=== PATIENT | female | born 1930 | race Two or more races ===

== ENCOUNTER 2016-04-09 14:12 | Inpatient (IN) | payer MEDICAID ==
[2016-04-09] VITALS (23 sets, daily range): BP systolic 56–113; BP diastolic 40–64
[~2016-04-09] VITALS: Ht 160 cm; Wt 49.9 kg
[~2016-04-09 14:12] MED LIST: ALLOPURINOL100 M1 ORAL; AMIODARONE HCL400 M1 ORAL; ELIQUIS2.5 MG PO; FERROUS SULFAT325 MG ORAL; FUROSEMIDE40 MG ORAL; HYDROCODON-ACE1 EA16 ORAL; LABETALOL HCL100 MG ORAL; LEVOTHYROXINE100 MC1 IV; LEVOTHYROXINE25 MCG ORAL; MYLERAN2 MG PO; PANTOPRAZOLE SO40 MG ORAL; TRAMADOL HCL50 MG ORAL
--- NOTE | 2016-04-09 14:16 | Emergency Room Report ---
History of Present Illness General Source: EMS, PMD Present Illness HPI 86 YO F RANI from SNF after call for "SOB". Patient found to be hypoxic to 90 % improved to 100% with NRB. Also found to be hypotensive, improved with 150cc fluid bolus. Patient endorses chills, cough, SOB, chest pain however she states affirmative to every question on ROS so unsure how reliable HPI is at this time. Per PMD Dr Montelongo, family is oscillating between hospice care and full code at this time. Patient's family requesting tx of infection, hypotensive but doesnt want intubation or CPR. No other history from patient or EMS. Allergies: Coded Allergies: No Known Allergies (Unverified , 02/15/16) Patient History Past Medical History: HTN, CHF, AFib, other - metastatic adenocarcinoma Past Surgical History: unable to obtain Pertinent Family History: unable to obtain Social History: Denies: alcohol use, drug use, smoking Now: No Immunizations: UTD Reviewed Nursing Documentation: PMH: Agreed, PSxH: Agreed Nursing Documentation-PMH Hx Cardiac Problems: Yes - CHF afib pacemaker chronic kidney disease hypothyroidsim Hx Hypertension: Yes Hx Pacemaker: Yes - Left side Hx Asthma: No Hx Diabetes: No Hx Cancer: Yes - metastatic adenocarcinoma Hx Gastrointestinal Problems: Yes - GERD pancreatitis Hx Dialysis: No Hx Neurological Problems: Yes - chronic renal disease Hx Cerebrovascular Accident: No Hx Seizures: No Review of Systems All Other Systems: negative except mentioned in HPI Physical Exam Sp02 EP Interpretation: abnormal General Appearance: normal inspection, well appearing, no apparent distress, alert, GCS 15, non-toxic Head: normocephalic, atraumatic Eyes: bilateral eye EOMI, bilateral eye PERRL ENT: normal ENT inspection, hearing grossly normal, normal voice Neck: normal inspection, full range of motion, supple, no meningismus, no bony tend Respiratory: normal inspection, no respiratory distress, no retraction, no wheezing, accessory muscle use, rhonchi Cardiovascular #1: regular rate, rhythm, no edema Gastrointestinal: normal inspection, normal bowel sounds, non tender, soft, no guarding, no hernia Genitourinary: no CVA tenderness Musculoskeletal: normal inspection, back normal, normal range of motion, Terell' s Sign negative Neurologic: normal inspection, alert, oriented x3, responsive, organizational effectiveness consultant III-XII nml as tested, motor strength/tone normal, speech normal Psychiatric: normal inspection, judgement/insight normal, mood/affect normal Skin: normal inspection, normal color, no rash Procedures Critical Care Time Critical Care Time CC time 45 minutes Care for 86 YO F with hypoxia, hypotension from SNF. VS unstable. Afebrile. Patient is weak, not providing much HPI DDx includes sepsis from PNA or UTI, CHF, COPD, ACS Care included sepsis order set for labs, initiation of IV antibiotics, tylenol PRN fever, gentle hydration given history of CHF Care may include administration of vasopressors started to support failing circulatory system, includes frequent re-exam, interpretation of lab studies and consultation with hospitalist/chocolate dipper Dr Montelongo 45 minutes of critical care time was spent with this patient not including time spent performing separately reportable procedures. Medical Decision Making Medicare Attestation I Donavon Dhillon MD hereby attest that the medical record entry for date of service, 03/03/16 accurately reflects signatures/notations that I made in my capacity as MD when I treated/diagnosed the above listed Medicare beneficiary. I attest that this information is true, accurate and complete to the best of my knowledge. I understand that any falsification, omission, or concealment of material fact may subject me to administrative, civil, or criminal liability. This patient warrants hospital admission for extreme of age and has a condition that cannot be treated as outpatient. Diagnostic Impression: Primary Impression: SOB (shortness of breath) Additional Impressions: Hypotension Qualified Codes: I95.9 - Hypotension, unspecified Hypoxemia Pneumonia Qualified Codes: J18.9 - Pneumonia, unspecified organism Septic shock ER Course 86 YO F with known CHF, atrial fib, multiple readmissions for SOB found to be hypotensive, hypoxic, rhoncherous lung sounds. PLAN Cardiac, O2 monitor, IV access, labs, IV Abx, supplemental O2 HOLD fluid bolus given rhoncerhous lung sounds, history of CHF, heart failure possible contributor to acute SOB EKG Diagnostic Results Rate: other - Atrial fib ST Segments: no acute changes ASA given to the pt in ED: No Rhythm Strip Diag. Results EP Interpretation: yes Rate: 90 Rhythm: other - Atrial fib, +PVCs Chest X-Ray Diagnostic Results EP Interpretation: Yes Findings: other - pacemaker on left chest. Increased right side airspace disease, PNA vs chf. No PTX. Number of Views: 1 Reevaluation Time: 16:20 Status: improved Reevaluation Impression Labs: H&H stable. No leuks. Major delay from lab for CMP. Lactate is normal. CXR with right sided PNA Patient's BP did not respond to 1.5L NS. Concern for additional IVF bolus because of history of CHF so IV dopamine started peripherally. Patient maintaining O2 sat on supplemental O2. Mental status is baseline. Empiric Abx given for PNA as likely cause of septic shock Endorsed to Dr Montelongo at 4pm for ICU admission Disposition: ADMITTED INPATIENT Condition: Critical DONAVON DHILLON M.D. Apr 09, 2016 14:16
[2016-04-09] MEDS ORDERED: Azithromycin 500 MG in NS 250 ML IV ONE (14:45)
--- NOTE | 2016-04-09 14:54 | Diagnostic Imaging Report ---
Indication: Chest Pain Comparison: 03/14/16 A single view chest radiograph was obtained. Findings: There is infiltrate in the right upper lobe suspicious for pneumonia. Heart is enlarged. Pulmonary vascularity is prominent but not definitely congested. There is a left pacemaker again noted. Impression: Suspicion of a right upper lobe pneumonia
[2016-04-09 15:14] LABS: MEAN CORPUSCULAR HEMOGLOBIN 27.9 PG (27.0-31.0); MEAN CORPUSCULAR HGB CONC 31.1 G/DL (32.0-36.0); MEAN CORPUSCULAR VOLUME 90 FL (80-99); MEAN PLATELET VOLUME 12.7 FL (6.5-10.1); PLATELET COUNT 98 K/UL (150-450); RED BLOOD COUNT 3.86 M/UL (4.20-5.40); RED CELL DISTRIBUTION WIDTH 16.2 % (11.6-14.8)
[2016-04-09] MEDS ORDERED: Cefepime 1gm vial ONE (15:16)
[2016-04-09] MEDS ORDERED: DOPamine 400mg/250ml 250 ML IV SCH (15:30)
[2016-04-09 15:32] LABS: TROPONIN I < 0.30 ng/mL (<=0.30)
[2016-04-09] MEDS ORDERED: Miralax 17gm pkt ORAL PRN (16:30)
[2016-04-09] MEDS ORDERED: DuoNeb 0.5-3(2.5)mg/3ml neb HHN PRN (16:30)
[2016-04-09] MEDS ORDERED: Nitroglycerin Subl 0.4mg tab (Bottle Of 25) SL PRN (16:30)
[2016-04-09] MEDS ORDERED: Morphine Sulfate 2mg/ml Inj IVP PRN (16:30)
[2016-04-09 16:35] LABS: ALANINE AMINOTRANSFERASE 11 U/L (3-33); ALBUMIN/GLOBULIN RATIO 0.5 (1.0-2.7); ANION GAP 18 (5-15); ASPARTATE AMINO TRANSFERASE 25 U/L (5-40); CARBON DIOXIDE 25 mEQ/L (20-30); CHLORIDE 91 mEQ/L (98-107); HEMOLYSIS 23; POTASSIUM 4.7 mEQ/L (3.4-4.9); SODIUM 134 mEQ/L (135-145); TOTAL PROTEIN 7.6 g/dL (6.6-8.7)
--- NOTE | 2016-04-09 16:36 | History and Physical ---
History of Present Illness General Date patient seen: Apr 09, 2016 Reason for Hospitalization: Dyspnea/Respdistress Present Illness HPI 86 year old female with hx of metastatic cancer, brought in by ambulance for complains of dyspnea.Pt was in respiratory failure in ER and was put on BAIPA Also found to be hypotensive, improved with 150cc fluid bolus. Family is oscillating between hospice care and full code at this time. Patient's family requesting tx of infection, hypotensive but doesn't want intubation or CPR. Pt is being transferred to ICU, for further management. Allergies: Coded Allergies: No Known Allergies (Unverified , 02/15/16) Medication History Scheduled Allopurinol* (Allopurinol*), 300 MG ORAL DAILY Amiodarone Hcl* (Amiodarone Hcl*), MG ORAL EVERY 12 HOURS, (Reported) Ferrous Sulfate* (Ferrous Sulfate*), MG ORAL DAILY, (Reported) Furosemide* (Lasix*), 40 MG ORAL DAILY Hydrocodone/Acetaminophen 7.5-325* (Hydrocodon-Acetaminoph 7.5-325*), 1 TAB ORAL Q4H, (Reported) Labetalol Hcl* (Normodyne*), MG ORAL EVERY 12 HOURS, (Reported) Levothyroxine Sodium* (Levothyroxine Sodium*), MCG ORAL DAILY, (Reported) Levothyroxine Sodium* (Levothyroxine Sodium*), 50 MCG IV DAILY Pantoprazole* (Pantoprazole*), MG ORAL DAILY, (Reported) Scheduled PRN Tramadol Hcl* (Ultram*), MG ORAL Q6H PRN for For Pain, (Reported) Miscellaneous Medications Apixaban (Eliquis), MG PO, (Reported) Busulfan (Myleran), MG PO, (Reported) Patient History Healthcare decision maker Resuscitation status Advanced Directive on File Past Medical/Surgical History Past Medical/Surgical History: (1) Anemia (2) Chronic GERD (3) Metastatic adenocarcinoma (4) Pacemaker (5) Atrial fibrillation (6) Cardiomyopathy (7) Septic shock Review of Systems All Other Systems: negative except mentioned in HPI Physical Exam General Appearance: WD/WN Lines, tubes and drains: peripheral, central line HEENT: normocephalic, atraumatic Neck: non-tender, normal alignment Cardiovascular/Chest: normal peripheral pulses, normal rate Genitourinary/Rectal: normal genital exam Extremities: normal range of motion Last 24 Hour Vital Signs Date Time Temp Pulse Resp B/P Pulse Ox O2 Delivery O2 Flow Rate FiO2 04/09/16 16:10 97.8 103 23 98/63 92 Nasal Cannula 2.0 04/09/16 16:03 79/44 04/09/16 16:03 97.8 86 22 83/47 95 Nasal Cannula 2.0 04/09/16 15:21 97.8 86 21 56/40 95 Nasal Cannula 2.0 04/09/16 15:04 87 21 Nasal Cannula 3.0 04/09/16 14:59 97.9 87 21 76/40 100 Nasal Cannula 3.0 04/09/16 14:12 97.9 88 18 108/51 100 Nasal Cannula 3.0 Laboratory Tests Test 04/09/16 14:50 White Blood Count 10.0 K/UL (4.8-10.8) Red Blood Count 3.86 M/UL (4.20-5.40) L Hemoglobin 10.8 G/DL (12.0-16.0) L Hematocrit 34.6 % (37.0-47.0) L Mean Corpuscular Volume 90 FL (80-99) Mean Corpuscular Hemoglobin 27.9 PG (27.0-31.0) Mean Corpuscular Hemoglobin Concent 31.1 G/DL (32.0-36.0) L Red Cell Distribution Width 16.2 % (11.6-14.8) H Platelet Count 98 K/UL (150-450) L Mean Platelet Volume 12.7 FL (6.5-10.1) H Neutrophils (%) (Auto) % (45.0-75.0) Lymphocytes (%) (Auto) % (20.0-45.0) Monocytes (%) (Auto) % (1.0-10.0) Eosinophils (%) (Auto) % (0.0-3.0) Basophils (%) (Auto) % (0.0-2.0) Neutrophils % (Manual) Pending Lymphocytes % (Manual) Pending Platelet Estimate Pending Platelet Morphology Pending Sodium Level Pending Potassium Level Pending Chloride Level Pending Carbon Dioxide Level Pending Blood Urea Nitrogen Pending Creatinine Pending Estimat Glomerular Filtration Rate Pending Glucose Level Pending Lactic Acid Level 1.90 mmol/L (0.66-2.22) Calcium Level Pending Total Bilirubin Pending Aspartate Amino Transf (AST/SGOT) Pending Alanine Aminotransferase (ALT/SGPT) Pending Alkaline Phosphatase Pending Total Creatine Kinase Pending Creatine Kinase MB Pending Troponin I < 0.30 ng/mL (<=0.30) Pro-B-Type Natriuretic Peptide > 04381 pg/mL (0-450) H Total Protein Pending Albumin Pending Globulin Pending Height (Feet): 5 Height (Inches): 3.00 Weight (Pounds): 110 Medications Current Medications Medications (Trade) Dose Ordered Sig/Ophelia Route PRN Reason Start Time Stop Time Status Last Admin Dose Admin Acetaminophen (Tylenol) 650 mg Q4H PRN ORAL fever 04/09/16 16:30 05/09/16 16:29 UNV Albuterol/ Ipratropium 3 ml 3 ml EVERY 4 HOURS PRN HHN Shortness of Breath 04/09/16 16:30 04/14/16 16:29 UNV Cefepime HCl 2 gm/ Dextrose 100 ml @ 100 mls/hr EVERY 12 HOURS IV 04/09/16 21:00 04/16/16 20:59 UNV Dextrose (Dextrose 50%) STAT PRN IV Hypoglycemia 04/09/16 16:30 05/09/16 16:29 UNV Dopamine HCl/ Dextrose 250 ml @ 0 mls/hr Q24H IV 04/09/16 15:30 05/09/16 15:29 04/09/16 16:03 Heparin Sodium (Porcine) (Heparin 5000 units/ml) 5,000 units EVERY 12 HOURS SUBQ 04/09/16 21:00 05/09/16 20:59 UNV Insulin Aspart (NovoLOG) BEFORE MEALS AND HS SUBQ 04/09/16 16:30 05/09/16 16:29 UNV Morphine Sulfate (Morphine Sulfate) 2 mg EVERY 4 HOURS PRN IVP Moderate Pain (Pain Scale 4-6) 04/09/16 16:30 04/16/16 16:29 UNV Nitroglycerin (Ntg) 0.4 mg Every 5 Minutes PRN SL Prn Chest Pain 04/09/16 16:30 05/09/16 16:29 UNV Ondansetron HCl (Zofran) 4 mg Q6H PRN IVP Nausea & Vomiting 04/09/16 16:30 05/09/16 16:29 UNV Polyethylene Glycol (Miralax) 17 gm DAILYPRN PRN ORAL Constipation 04/09/16 16:30 05/09/16 16:29 UNV Sodium Chloride (Sodium Chloride 1000ml bag) 1,000 ml @ 100 mls/hr Q10H IVLG 04/10/16 00:21 05/10/16 00:20 UNV Temazepam (Restoril) 15 mg HSPRN PRN ORAL Insomnia 04/09/16 16:30 04/16/16 16:29 UNV Vancomycin HCl/ Dextrose (Vancomycin/D5W 250ml) 250 ml @ 167 mls/hr Q24H IV 04/10/16 00:30 04/15/16 00:29 UNV Assessment/Plan Problem List: (1) Acute respiratory failure ICD Codes: J96.00 - Acute respiratory failure, unspecified whether with hypoxia or hypercapnia SNOMED: 26104035 (2) Hypothyroidism ICD Codes: E03.9 - Hypothyroidism, unspecified SNOMED: 05945717 (3) CHF (congestive heart failure) ICD Codes: I50.9 - Heart failure, unspecified SNOMED: 93885598 (4) Atrial fibrillation ICD Codes: I48.91 - Unspecified atrial fibrillation SNOMED: 96648724 (5) Cardiomyopathy ICD Codes: I42.9 - Cardiomyopathy, unspecified SNOMED: 40322538 (6) Metastatic adenocarcinoma ICD Codes: C79.9 - Secondary malignant neoplasm of unspecified site SNOMED: 6364266, 844950818 (7) Renal failure ICD Codes: N19 - Unspecified kidney failure SNOMED: 26989363 Assessment/Plan ICU care continue bipap titrate setting IV fluids IV antibiotics check cultures family meeting about further care. MICHELLE SEGURA Apr 09, 2016 16:36
[2016-04-09 16:39] LABS: CALCIUM 5.8 mg/dL (8.6-10.2)
[2016-04-09 16:45] LABS: CKMB 1.5 ng/mL (< 3.8)
[2016-04-09 16:46] LABS: ANISOCYTOSIS 1+; BAND NEUTROPHILS % (MANUAL) 9 % (0-8); LYMPHOCYTES % (MANUAL) 11 % (20-45); NEUTROPHILS % (MANUAL) 73 % (45-75); TOTAL CELLS COUNTED 100
[2016-04-09 16:48] LABS: BASOPHILS % (MANUAL) 0 % (0-2); EOSINOPHILS % (MANUAL) 0 % (0-3); HYPOCHROMASIA 1+; PLATELET ESTIMATE DECREASED; PLATELET MORPHOLOGY NORMAL
[2016-04-09] MEDS ORDERED: Azithromycin Inj IV ONE (17:03)
[2016-04-09 17:06] LABS: APPEARANCE,URINE CLEAR; KETONES,URINE 1+ (NEGATIVE); LEUKOCYTE ESTERASE ,URINE 1+ (NEGATIVE); NITRITE,URINE NEGATIVE (NEGATIVE); PH,URINE 5 (4.5-8.0); PROTEIN,URINE 2+ (NEGATIVE); UROBILINOGEN,URINE 1 MG/DL (0.0-1.0)
--- NOTE | 2016-04-09 17:45 | Emergency Room Report ---
History of Present Illness General Chief Complaint: Dyspnea/Respdistress Source: EMS Present Illness Allergies: Coded Allergies: No Known Allergies (Unverified , 02/15/16) Patient History Now: No Nursing Documentation-PMH Hx Cardiac Problems: Yes - CHF afib pacemaker chronic kidney disease hypothyroidsim Hx Hypertension: Yes Hx Pacemaker: Yes Hx Cancer: Yes - metastatic adenocarcinoma Hx Gastrointestinal Problems: Yes - GERD pancreatitis Hx Dialysis: No - Renal failure History Of Psychiatric Problem: Yes - Dementia Hx Neurological Problems: Yes - chronic renal disease Hx Cerebrovascular Accident: No Hx Seizures: No Physical Exam Vital Signs Date Time Temp Pulse Resp B/P Pulse Ox O2 Delivery O2 Flow Rate FiO2 04/09/16 14:12 97.9 88 18 108/51 100 Nasal Cannula 3.0 04/09/16 16:55 100 Procedures Central Line Central Line : Consent: Emergent Central Line Lumen: triple Maximal Sterile Barrier Tech: yes cap, yes mask, yes sterile gown, yes sterile gloves, yes large sterile sheet, yes hand hygiene, yes chlorhexidine prep No Max Barrier Tech Because: emergency insertion Central Line Postion: femoral (R) Anesthesia: Lidocaine Complications: none Central Line Post Position: sutured, good blood return, position confirmed w / CXR Attempts: One Patient Tolerated: Well Complications: None Medical Decision Making Diagnostic Impression: Primary Impression: SOB (shortness of breath) Additional Impressions: Hypoxemia Septic shock Hypotension Qualified Codes: I95.9 - Hypotension, unspecified Pneumonia Qualified Codes: J18.9 - Pneumonia, unspecified organism ER Course Patient continued to downtrend with BP despite 20mcg dopamine Central line placed. levophed started in conjunction. Patient maintaining O2 sat with NRB supplemental O2. RR 22 Last Vital Signs Date Time Temp Pulse Resp B/P Pulse Ox O2 Delivery O2 Flow Rate FiO2 04/09/16 17:36 97.8 107 26 113/59 100 Nasal Cannula 2.0 04/09/16 17:17 100 Status: improved Disposition: ADMITTED INPATIENT Condition: Critical Referrals: [employer] [facility] ANISH PADILLA (PCP) DONAVON DHILLON M.D. Apr 09, 2016 17:45
[2016-04-09 17:54] LABS: AMORPHOUS SEDIMENT,UR FEW /LPF; BACTERIA,URINE MODERATE /HPF; RBC,URINE 0-2 /HPF (0 - 2); SQUAMOUS EPITHELIAL CELL,UR FEW /LPF (NONE/OCC)
[2016-04-09 17:55] LABS: ICTOTEST NEGATIVE
[2016-04-09] MEDS ORDERED: Lidocaine 1% Plain 30 ml INJ ONE (17:59)
[2016-04-09] MEDS ORDERED: Levophed 4mg/4mL Inj IV ONE ×2 (18:44→18:57)
[2016-04-09] MEDS: NovoLOG Insulin Flexpen SUBQ SCH (20:58)
[2016-04-09] MEDS: Heparin 5000 units/ml inj SUBQ SCH (21:00)
[2016-04-10] VITALS (37 sets, daily range): BP systolic 0–84; BP diastolic 0–46
[2016-04-10 06:10] LABS: MEAN CORPUSCULAR HEMOGLOBIN 28.2 PG (27.0-31.0); MEAN CORPUSCULAR HGB CONC 30.1 G/DL (32.0-36.0); MEAN CORPUSCULAR VOLUME 94 FL (80-99); MEAN PLATELET VOLUME 12.6 FL (6.5-10.1); PLATELET COUNT 87 K/UL (150-450); RED BLOOD COUNT 3.59 M/UL (4.20-5.40); RED CELL DISTRIBUTION WIDTH 16.8 % (11.6-14.8); WHITE BLOOD COUNT 8.4 K/UL (4.8-10.8)
[2016-04-10] MEDS: NovoLOG Insulin Flexpen SUBQ SCH (06:30)
[2016-04-10 06:31] LABS: ALANINE AMINOTRANSFERASE 41 U/L (3-33); ALBUMIN/GLOBULIN RATIO 0.4 (1.0-2.7); ANION GAP 25 (5-15); ASPARTATE AMINO TRANSFERASE 160 U/L (5-40); CARBON DIOXIDE 16 mEQ/L (20-30); CHLORIDE 93 mEQ/L (98-107); CREATININE 3.3 mg/dL (0.5-0.9); HEMOLYSIS 4; POTASSIUM 5.4 mEQ/L (3.4-4.9); SODIUM 134 mEQ/L (135-145); TOTAL PROTEIN 6.5 g/dL (6.6-8.7)
[2016-04-10 06:58] LABS: CALCIUM 5.2 mg/dL (8.6-10.2)
[2016-04-10 07:04] LABS: MAGNESIUM 2.3 mg/dL (1.7-2.5); PHOSPHORUS 5.5 mg/dL (2.5-4.8); URIC ACID 9.6 mg/dL (3.0-7.5)
[2016-04-10 07:12] LABS: CKMB 1.9 ng/mL (< 3.8)
[2016-04-10 07:27] LABS: BILIRUBIN,DIRECT 0.9 mg/dL (0.1-0.3)
[2016-04-10] MEDS: Heparin 5000 units/ml inj SUBQ SCH (07:48)
[2016-04-10 08:51] LABS: BAND NEUTROPHILS % (MANUAL) 5 % (0-8); BASOPHILS % (MANUAL) 0 % (0-2); EOSINOPHILS % (MANUAL) 0 % (0-3); LYMPHOCYTES % (MANUAL) 14 % (20-45); NEUTROPHILS % (MANUAL) 78 % (45-75); PLATELET ESTIMATE DECREASED; PLATELET MORPHOLOGY NORMAL; TOTAL CELLS COUNTED 100
[2016-04-10 08:55] LABS: ANISOCYTOSIS 1+; HYPOCHROMASIA 1+
[2016-04-10] MEDS ORDERED: NS 275ml ONE (08:59)
[2016-04-10] MEDS ORDERED: NS 55ml IV ONE (08:59)
--- NOTE | 2016-04-10 10:14 | General Progress Note ---
Progress Note Progress Note Pt was in ICU overnight on bipap, her bp continued to decrease, she was made DNR as family requested. She developed asystole and had a comfortable at 9 am. MICHELLE SEGURA Apr 10, 2016 10:14
[2016-04-10] MEDS ORDERED: Cefepime HCl 1 GM in NS 110 ML IVPB SCH (14:00)
[2016-04-11] MEDS ORDERED: Vancomycin 750mg/D5W 250ml IVPB ONE ×2 (08:00)
--- NOTE | 2016-04-11 20:34 | Discharge Summary ---
Discharge Summary Hospital Course Date of Admission Apr 09, 2016 at 15:40 Date of Discharge Apr 10, 2016 at 09:00 Admitting Diagnosis DYSPNEA HPI Crys Munoz is a 86 year old female who was admitted on Apr 09, 2016 at 15: 40 for Dyspnea Hospital Course [id number] Discharge Discharge Disposition Patient Discharge Diagnoses: Nicolle Bridges NP Apr 11, 2016 20:34
--- NOTE | 2016-04-12 08:30 | Cardiology Report ---
APPROVED REPORT EKG Measurement Heart [id number] P3 [id number] Sinus rhythm Ventricular paced rhythm Electronic pacemaker
--- NOTE | 2016-04-12 10:37 | Discharge Summary 2 SIG ---
DATE OF ADMISSION: 04/09/2016 DATE OF DISCHARGE: 04/10/2016 BRIEF SUMMARY: The patient is an unfortunate 86-year-old female, who was brought in from SNF after shortness of breath. The patient was found to be hypoxic and on arrival to ED was hypotensive and was given fluid resuscitation. An x-ray showed a pacemaker on the left chest with increased right-sided airspace disease, possible pneumonia, possible congestive heart failure, but no pneumothorax. Blood pressure initially responded to IV bolus. BNP was elevated secondary to CHF. IV dopamine was started peripherally and was started on an empiric antibiotic for pneumonia as likely cause of septic shock. She was admitted to ICU. She was placed on BiPAP. Blood pressure continued to down trend despite being on dopamine. A central line was placed in and Levophed was started in conjunction. However, the patient continued to decline and still hypotensive despite maximum pressors. Family decided to place the patient on DNR and DNI . The patient eventually . FINAL DIAGNOSES: 1. Acute respiratory failure requiring BiPAP. 2. Septic shock. 3. Right lobe pneumonia. 4. Acute renal failure. 5. Hypothyroidism. 6. Acute on chronic systolic congestive heart failure. 7. Cardiomyopathy. 8. Atrial fibrillation. 9. Metastatic adenocarcinoma. 10. Palliative/comfort care. Tami Montelongo M.D. I have been assigned to dictate discharge summary on this account and I was not involved in the patient's management. Nicolle Bridges N.P. DR: Laruen JOB#: [id number] CC: [place]
== END 2016-04-10 09:00 | disposition expired | DRG 720 ==
LOC: EDBD 14:12 → EMR 14:39 → EDBEDREQTM 15:30 → EDBEDREQSVC 15:30 → EDBEDREQ 15:38 → ICU 15:40 → EDBEDREQ 15:53
PROC: 5A09357 Assistance with Respiratory Ventilation, Less than 24 Consecutive Hours, Continuous Positive Airway Pressure (ICD-10-PCS; principal; 2016-04-10)
DX: A41.9 Sepsis, unspecified organism (principal); J96.01 Acute respiratory failure with hypoxia; R65.21 Severe sepsis with septic shock; I50.23 Acute on chronic systolic (congestive) heart failure; J18.9 Pneumonia, unspecified organism; N17.9 Acute kidney failure, unspecified; C79.9 Secondary malignant neoplasm of unspecified site; I42.9 Cardiomyopathy, unspecified; I48.91 Unspecified atrial fibrillation; E03.9 Hypothyroidism, unspecified; Z95.0 Presence of cardiac pacemaker; Z66 Do not resuscitate; K21.9 Gastro-esophageal reflux disease without esophagitis
CPT/HCPCS: 36415; 71010; 80053; 81001; 82248; 82436; 82550; 82553; 82962; 83605; 83735; 83880; 83930; 83935; 84100; 84133; 84300; 84439; 84484; 84550; 85007; 85025; 87040; 87081; 87086; 89050; 93005; 94660; 94760; J1815